=== PATIENT | male | born 1990 | race African-American/Black ===

== ENCOUNTER 2021-08-22 16:51 | Emergency (ER) | payer SELFPAY ==
[2021-08-22 18:11] LABS: #Eosinphils 0.2 10x3/uL (0.0-0.5); #Monocytes 0.9 10x3/uL (0.0-1.1); %Basophils 0.2 % (0.0-2.0); %Eosinophils 1.7 % (0.0-6.0); %Lymphocytes 19.1 % (18.0-47.0); %Monocytes 8.1 % (0.0-10.0); %Neutrophils 70.5 % (40.0-75.0); Hemoglobin 14.7 g/dL (13.5-17.5); Mean Corpuscular Hemoglobin 28.9 pg (27.0-33.0); Mean Corpuscular Volume 90.4 fl (81.2-95.1); Mean Platelet Volume 9.2 fl (7.4-10.4); Platelet Count 390 10x3/uL (150-450); RBC Distribution Width 12.8 % (11.5-14.5); Red Blood Cell (RBC) Count 5.08 10x6/uL (4.32-5.72); White Blood Cell (WBC) Count 11.4 10x3/uL (3.5-10.5)
[2021-08-22 18:23] LABS: ALT (SGPT) 30 U/L (8-55); AST (SGOT) 21 U/L (5-34); Albumin 3.9 g/dL (3.5-5.0); Alkaline Phosphatase 74 U/L (40-110); Anion Gap 13 mmol/L (10-20); BUN (Urea Nitrogen) 14 mg/dL (8.9-20.6); Calc. Creatinine Clearance 0 mL/min (70-130); Calcium 9.8 mg/dL (7.8-10.44); Carbon Dioxide 29 mmol/L (22-29); Chloride 100 mmol/L (98-107); Globulin 3.8 g/dL (2.4-3.5); Glucose 114 mg/dL (70-105); Lipase 9 U/L (8-78); Protein, Total 7.7 g/dL (6.0-8.3); Sodium 138 mmol/L (136-145)
[2021-08-22] MEDS ORDERED: Ondansetron PF 4 MG/2 ML Vial ONE (18:55)
[2021-08-22] MEDS ORDERED: Ketorolac Tromethamine 30 MG/ML VIAL ONE (18:55)
[2021-08-22 19:18] LABS: Bilirubin Neg (Negative); Blood, Urine 250 (Negative); Clarity Clear (Clear); Glucose, Urine (Dipstick) Normal (Negative); Ketone, Urine Negative (Negative); Leukocyte 25 (Negative); Nitrite Negative (Negative); Protein, Urine (Dipstick) 15 mg/dl (Neg-Trace); Specific Gravity, Urine 1.015 (1.002-1.036); Urobilinogen Normal mg/dL (Less than 2)
[2021-08-22 19:28] LABS: Bacteria/HPF Rare-Few HPF (None Seen); Mucous/LPF Rare LPF (<2+); Squamous Epithelial 0-3 HPF (0-3); WBC/HPF 0-3 HPF (0-3)
== END 2021-08-22 20:00 | disposition home or self-care (01) ==
LOC: CSHERS 16:51
DX: R10.32 Left lower quadrant pain (principal); R31.9 Hematuria, unspecified; M54.50 Low back pain, unspecified; J45.909 Unspecified asthma, uncomplicated; F17.210 Nicotine dependence, cigarettes, uncomplicated
CPT/HCPCS: 36415; 74177; 80053; 81003; 81015; 83690; 85025; 96374; 96375; J1885; J2405